=== PATIENT | female | born 1945 | race Caucasian/White ===

== ENCOUNTER 2017-11-01 07:26 | Day surgery (SDC) | payer MEDICARE, BC ==
[~2017-11-01 07:26] MED LIST: BALANCED SALT IRRIG SOLN COMB1 500 ML, EPINEPHRINE-PF 1:1000 1 MG IO ONE
[2017-11-01] MEDS ORDERED: TETRACAINE HCL 0.5% OPHT DROP 2 ML BOTTLE ONE ×2 (07:44→08:03)
[2017-11-01] MEDS ORDERED: FLURBIPROFEN 0.03% OPHT DROP 2.5 ML BOTTLE ONE ×2 (07:44→07:47)
[2017-11-01] MEDS ORDERED: CIPROFLOXACIN 0.3% OPHT DROP 2.5 ML BOTTLE ONE (07:44)
[2017-11-01] MEDS ORDERED: PHENYLEPHRINE 2.5% OPHT DROP 2 ML BOTTLE ONE (07:45)
[2017-11-01] MEDS ORDERED: CYCLOPENTOLATE 1% OPHT DROP 2 ML BOTTLE ONE (07:45)
[2017-11-01] MEDS ORDERED: NEO/POLYMYX B/DEXAME OPHT OINT 3.5 GM TUBE ONE (08:03)
[2017-11-01] MEDS ORDERED: PILOCARPINE 1% OPHT DROP 15 ML BOTTLE ONE (08:03)
[2017-11-01] MEDS ORDERED: LIDOCAINE HCL-MPF 1% 5 ML VIAL ONE (08:03)
[2017-11-01 08:04] LABS: *BILIRUBIN,URIN NEGATIVE (NEGATIVE); *BLOOD, URINE Trace-intact (NEGATIVE); *CLARITY,URINE CLEAR (CLEAR); *COLOR,URINE YELLOW (YELLOW); *KETONES,URINE NEGATIVE (NEGATIVE); *PROTEIN,URINE NEGATIVE (NEGATIVE); *UROBILINOGEN,URINE 0.2 E.U./dl (NORMAL); LEUKOCYTE ESTERASE ,URINE 2+ (NEGATIVE); NITRITE, URINE NEGATIVE (NEGATIVE); PH,URINE 5.5 (5.0-8.0); UGLUCOSE NEGATIVE (NEGATIVE)
[2017-11-01] MEDS ORDERED: BUPIVACAINE PF 0.5% 30 ML VIAL ONE (08:04)
[2017-11-01] MEDS ORDERED: BALANCED SALT IRRIG SOLN COMB2 15 ML IRRIG.SOLN ONE (08:04)
[2017-11-01] MEDS ORDERED: EPINEPHRINE 1 MG/1 ML AMP ONE (08:04)
[2017-11-01] MEDS ORDERED: HYALURONATE SODIUM 8.5 MG/0.85 ML DISP.SYRIN ONE (08:04)
[2017-11-01 08:10] LABS: CARBON DIOXIDE 30 mmol/L (21-32); CHLORIDE 102 mmol/L (98-107); CREATININE 0.9 mg/dL (0.6-1.3); GLUCOSE 104 mg/dL (74-106); UREA NITROGEN, BLOOD 23 mg/dL (7-18)
[2017-11-01 08:11] LABS: BACTERIA,URINE FEW /HPF (NONE SEEN); SQUAMOUS EPITHELIAL CELL,UR MANY /HPF (NONE SEEN)
[2017-11-01 08:12] LABS: BASOPHILS # (AUTO) 0.1 K/uL (0.0-8.0); BASOPHILS % (AUTO) 0.7 % (0.0-2.0); EOSINOPHILS # (AUTO) 0.2 K/uL (0.0-0.7); EOSINOPHILS % (AUTO) 1.8 % (0.0-7.0); HEMATOCRIT 37.1 % (31.2-41.9); HEMOGLOBIN 12.3 g/dL (10.9-14.3); LYMPHOCYTES # (AUTO) 1.8 K/uL (20.0-40.0); LYMPHOCYTES % (AUTO) 19.1 % (20.5-51.5); MEAN CORPUSCULAR HEMOGLOBIN 31.3 uug (24.7-32.8); MEAN CORPUSCULAR HGB CONC 33 g/dL (32.3-35.6); MEAN CORPUSCULAR VOLUME 94.1 fL (75.5-95.3); MONOCYTES # (AUTO) 0.5 K/uL (2.0-10.0); MONOCYTES % (AUTO) 5.5 % (0.0-11.0); NEUTROPHILS % (AUTO) 72.9 % (38.5-71.5); PLATELET COUNT (AUTO) 211 K/uL (179-408); RED BLOOD CELL COUNT(AUTO) 3.94 MIL/uL (3.63-4.92); WHITE BLOOD COUNT (AUTO) 9.6 K/uL (3.8-11.8)
== END 2017-11-01 08:15 | disposition home or self-care (01) ==
LOC: DS 07:26
PROVIDERS: ATTEND Dermatology MOHS-Micrographic Surgery
DX: H26.9 Unspecified cataract (principal); Z53.9 Procedure and treatment not carried out, unspecified reason
CPT/HCPCS: 36415; 71045; 85025; 85730; A4663; J0171; J3490; J3590; J7120; J7321

== ENCOUNTER 2017-11-08 07:03 | Day surgery (SDC) | payer MEDICARE, BC ==
[2017-11-08] MEDS ORDERED: IV LACTATED RINGERS SOLUTION 1,000 ML BAG IV ONE (07:04)
[2017-11-08] MEDS ORDERED: LIDOCAINE HCL-MPF 1% 5 ML VIAL ONE (07:06)
[2017-11-08] MEDS ORDERED: EPINEPHRINE 1 MG/1 ML AMP ONE (07:06)
[2017-11-08] MEDS ORDERED: TETRACAINE HCL 0.5% OPHT DROP 2 ML BOTTLE ONE ×2 (07:06→07:22)
[2017-11-08] MEDS ORDERED: NEO/POLYMYX B/DEXAME OPHT OINT 3.5 GM TUBE ONE (07:06)
[2017-11-08] MEDS ORDERED: PILOCARPINE 1% OPHT DROP 15 ML BOTTLE ONE (07:06)
[2017-11-08] MEDS ORDERED: BALANCED SALT IRRIG SOLN COMB2 15 ML IRRIG.SOLN ONE (07:06)
[2017-11-08] MEDS ORDERED: HYALURONATE SODIUM 8.5 MG/0.85 ML DISP.SYRIN ONE (07:07)
[2017-11-08] MEDS ORDERED: BUPIVACAINE PF 0.5% 30 ML VIAL ONE (07:07)
[2017-11-08] MEDS ORDERED: FLURBIPROFEN 0.03% OPHT DROP 2.5 ML BOTTLE ONE (07:22)
[2017-11-08] MEDS ORDERED: CIPROFLOXACIN 0.3% OPHT DROP 2.5 ML BOTTLE ONE (07:22)
[2017-11-08] MEDS ORDERED: CYCLOPENTOLATE 1% OPHT DROP 2 ML BOTTLE ONE (07:23)
[2017-11-08] MEDS ORDERED: PHENYLEPHRINE 2.5% OPHT DROP 2 ML BOTTLE ONE (07:23)
[2017-11-08] MEDS ORDERED: MIDAZOLAM HCL 2 MG/2 ML VIAL ONE (09:07)
[2017-11-08] MEDS ORDERED: FENTANYL CITRATE 100 MCG/2 ML AMPUL ONE (09:07)
== END 2017-11-08 12:25 | disposition home or self-care (01) ==
LOC: DS 07:03
PROVIDERS: ATTEND Dermatology MOHS-Micrographic Surgery
DX: H25.89 Other age-related cataract (principal); K21.9 Gastro-esophageal reflux disease without esophagitis; M53.87 Other specified dorsopathies, lumbosacral region
CPT/HCPCS: 66984; 93005; A4663; J0171 ×2; J2250; J3010; J3490 ×2; J3590; J7120 ×2; J7321; V2632

== ENCOUNTER 2019-09-18 06:43 | Day surgery (SDC) | payer MEDICARE, BC ==
[2019-09-18] MEDS ORDERED: PROPOFOL 200 MG/20 ML BOTTLE IV ONE (06:44)
[2019-09-18] MEDS ORDERED: LIDOCAINE HCL-MPF 1% 5 ML VIAL ONE (07:06)
[2019-09-18] MEDS ORDERED: NEO/POLYMYX B/DEXAME OPHT OINT 3.5 GM TUBE ONE (07:06)
[2019-09-18] MEDS ORDERED: PILOCARPINE 1% OPHT DROP 15 ML BOTTLE ONE (07:06)
[2019-09-18] MEDS ORDERED: TETRACAINE HCL 0.5% OPHT DROP 2 ML BOTTLE ONE ×2 (07:06→07:17)
[2019-09-18] MEDS ORDERED: BUPIVACAINE PF 0.5% 30 ML VIAL ONE (07:07)
[2019-09-18] MEDS ORDERED: EPINEPHRINE 1 MG/1 ML AMP ONE (07:07)
[2019-09-18] MEDS ORDERED: BALANCED SALT IRRIG SOLN COMB2 15 ML IRRIG.SOLN ONE (07:07)
[2019-09-18] MEDS ORDERED: FENTANYL CITRATE 100 MCG/2 ML AMPUL ONE (07:12)
[2019-09-18] MEDS ORDERED: CIPROFLOXACIN 0.3% OPHT DROP 2.5 ML BOTTLE ONE (07:17)
[2019-09-18] MEDS ORDERED: KETOROLAC 0.5% OPHT DROP 3 ML BOTTLE ONE (07:17)
[2019-09-18] MEDS ORDERED: CYCLOPENTOLATE 1% OPHT DROP 2 ML BOTTLE ONE (07:18)
[2019-09-18] MEDS ORDERED: PHENYLEPHRINE 2.5% OPHT DROP 2 ML BOTTLE ONE (07:18)
[2019-09-18 07:35] LABS: EOSINOPHILS # (AUTO) 0.1 K/uL (0.0-0.7); EOSINOPHILS % (AUTO) 3.4 % (0.0-7.0); HEMATOCRIT 35.2 % (31.2-41.9); HEMOGLOBIN 11.7 g/dL (10.9-14.3); LYMPHOCYTES # (AUTO) 1.1 K/uL (20.0-40.0); LYMPHOCYTES % (AUTO) 26.9 % (20.5-51.5); MEAN CORPUSCULAR HEMOGLOBIN 32.1 uug (24.7-32.8); MEAN CORPUSCULAR HGB CONC 33 g/dL (32.3-35.6); MEAN CORPUSCULAR VOLUME 96.8 fL (75.5-95.3); MONOCYTES # (AUTO) 0.3 K/uL (2.0-10.0); MONOCYTES % (AUTO) 7.2 % (0.0-11.0); NEUTROPHILS # (AUTO) 2.6 K/uL (1.8-8.9); NEUTROPHILS % (AUTO) 61.5 % (38.5-71.5); PLATELET COUNT (AUTO) 168 K/uL (179-408); RED BLOOD CELL COUNT(AUTO) 3.64 MIL/uL (3.63-4.92); WHITE BLOOD COUNT (AUTO) 4.3 K/uL (3.8-11.8)
[2019-09-18 07:42] LABS: CREATININE 0.9 mg/dL (0.6-1.3); POTASSIUM 4.2 mmol/L (3.5-5.1)
[2019-09-18 07:42] LABS: *BILIRUBIN,URIN NEGATIVE (NEGATIVE); *BLOOD, URINE NEGATIVE (NEGATIVE); *CLARITY,URINE CLEAR (CLEAR); *COLOR,URINE YELLOW (YELLOW); *KETONES,URINE NEGATIVE (NEGATIVE); *UROBILINOGEN,URINE 0.2 E.U./dl (NORMAL); LEUKOCYTE ESTERASE ,URINE 1+ (NEGATIVE); NITRITE, URINE NEGATIVE (NEGATIVE); PH,URINE 5.5 (5.0-8.0); UGLUCOSE NEGATIVE (NEGATIVE)
[2019-09-18 07:56] LABS: BILIRUBIN,TOTAL 0.3 mg/dL (0.2-1.0); TOTAL PROTEIN, SERUM 6.8 g/dL (6.4-8.2)
[2019-09-18 07:56] LABS: RBC,URINE 0-3 /HPF (0-3)
[2019-09-18 08:00] LABS: MUCUS,URINE FEW /LPF (0-FEW); SQUAMOUS EPITHELIAL CELL,UR FEW /HPF (NONE SEEN); URINE AMORPHOUS URATE FEW /HPF
[2019-09-18] MEDS ORDERED: BALANCED SALT IRRIG SOLN COMB1 500 ML, EPINEPHRINE-PF 1:1000 1 MG IO ONE ×2 (08:00)
[2019-09-18 08:12] LABS: BACTERIA,URINE MODERATE /HPF (NONE SEEN)
== END 2019-09-18 10:35 | disposition home or self-care (01) ==
LOC: DS 06:43
PROVIDERS: ATTEND Dermatology MOHS-Micrographic Surgery
DX: H25.89 Other age-related cataract (principal); E78.00 Pure hypercholesterolemia, unspecified; K21.9 Gastro-esophageal reflux disease without esophagitis; M19.90 Unspecified osteoarthritis, unspecified site; F41.9 Anxiety disorder, unspecified; F15.90 Other stimulant use, unspecified, uncomplicated; Z88.5 Allergy status to narcotic agent; Z79.899 Other long term (current) drug therapy; Z98.890 Other specified postprocedural states
CPT/HCPCS: 36415; 66984; 71045; 80053; 81000; 81001; 85025; 85730; 87086; 93005; J0171 ×2; J3010; J3490 ×2; J7120; V2632; A4663; J3590